=== PATIENT | female | born 1955 | race Caucasian/White ===

== ENCOUNTER 2020-03-06 14:11 | Inpatient (IN) | payer OTHER, MEDICAID ==
[~2020-03-06] VITALS: Ht 160 cm; Wt 54.4 kg
[2020-03-06 15:45] LABS: EOSINOPHILS % 2.5 % (0.0-5.0); HEMATOCRIT. 38.1 % (36.0-48.0); HEMOGLOBIN. 12.8 g/dL (12.0-16.0); LYMPHOCYTES % 33.6 % (20.0-50.0); MEAN CORPUSCULAR HEMOGLOBIN 27.3 pg (28.0-32.0); MEAN CORPUSCULAR VOLUME 81.3 fL (81.0-99.0); MEAN PLATELET VOLUME 9.4 fl (7.4-10.4); MONOCYTES % 6.8 % (2.0-8.0); NEUTROPHILS % 56.1 % (40.0-76.0); PLATELET 216 x1000/uL (130-400); RED BLOOD CELL COUNT 4.69 mill/uL (4.2-5.4); RED CELL DISTRIBUTION WIDTH 15.3 % (11.6-14.6)
[2020-03-06] MEDS ORDERED: NITROGLYCERIN 0.4MG TABLET SL SL PRN (15:45)
[2020-03-06] MEDS ORDERED: ASPIRIN 81MG TABLET PO ONE (15:45)
[2020-03-06 15:55] LABS: CHLORIDE 101 mEq/L (98-107)
[2020-03-06] MEDS ORDERED: ACETAMINOPHEN 650MG SUPP PR PRN ×2 (21:45)
[2020-03-06] MEDS ORDERED: GUAIFENESIN 200MG/10ML SUGAR FREE UDC PO PRN (21:45)
[2020-03-06] MEDS ORDERED: DOCUSATE SODIUM 100MG CAPSULE PO PRN (21:45)
[2020-03-06] MEDS ORDERED: ACETAMINOPHEN 650MG/20.3ML UDC GT PRN ×2 (21:45)
[2020-03-06] MEDS ORDERED: ONDANSETRON HCL 4MG/2ML INJ IV PRN (21:45)
[2020-03-06] MEDS ORDERED: ACETAMINOPHEN 325MG TABLET PO PRN ×2 (21:45)
[2020-03-06] MEDS ORDERED: DEXTROSE 50% WATER 50ML SYRINGE IV PRN (21:45)
[2020-03-06] MEDS ORDERED: MAGNESIUM/ALUMINUM HYDROXIDE/SIMETHICONE 30ML UDC PO PRN (21:45)
[2020-03-06] MEDS ORDERED: NA PHOS,M-B/NA PHOS,DI-BA ENEMA 118ML PR PRN (21:45)
[2020-03-07] VITALS (7 sets, daily range): BP systolic 100–175; BP diastolic 43–63
[2020-03-07] MEDS ORDERED: MECL-159 MT (00:11)
[2020-03-07] MEDS ORDERED: ATOR40TA70 MT (00:12)
[2020-03-07] MEDS ORDERED: LISI-604 MT (00:13)
[2020-03-07] MEDS ORDERED: SITA100T11 MT (00:14)
[2020-03-07] MEDS ORDERED: GLIM2TAB30 MT (00:15)
[2020-03-07 00:27] LABS: CREATINE KINASE 34 IU/L (26-192)
[2020-03-07 00:29] LABS: CREATINE KINASE MB FRACTION < 1.0 ng/mL (0.5-3.6)
[2020-03-07] MEDS: CLONIDINE 0.1MG TABLET PO PRN ×2 (00:29→18:56)
[2020-03-07 06:20] LABS: BASOPHILS % 0.5 % (0.0-2.0); EOSINOPHILS % 2.4 % (0.0-5.0); HEMATOCRIT. 32.7 % (36.0-48.0); HEMOGLOBIN. 10.9 g/dL (12.0-16.0); LYMPHOCYTES % 33.7 % (20.0-50.0); MEAN PLATELET VOLUME 8.7 fl (7.4-10.4); MONOCYTES % 8.6 % (2.0-8.0); NEUTROPHILS % 54.8 % (40.0-76.0); PLATELET 204 x1000/uL (130-400); RED BLOOD CELL COUNT 4.03 mill/uL (4.2-5.4); RED CELL DISTRIBUTION WIDTH 15.6 % (11.6-14.6)
[2020-03-07 06:30] LABS: CHLORIDE 105 mEq/L (98-107)
[2020-03-07 06:39] LABS: HDL CHOLESTEROL 43 mg/dL (40-59)
[2020-03-07] MEDS: BLOOD SUGAR DIAGNOSTIC STRIP TEST SCH ×3 (06:39→21:41)
[2020-03-07 06:40] LABS: LDL CHOLESTEROL 83 mg/dL (5-100)
[2020-03-07 06:41] LABS: CREATINE KINASE 30 IU/L (26-192)
[2020-03-07 06:45] LABS: CREATINE KINASE MB FRACTION < 1.0 ng/mL (0.5-3.6)
[2020-03-07] MEDS: CLOPIDOGREL 75MG TABLET PO SCH (09:00)
[2020-03-07] MEDS: ENOXAPARIN 40MG/0.4ML SYR SUBCUT SCH (09:00)
[2020-03-07] MEDS: ASPIRIN 81MG TABLET PO SCH (09:00)
[2020-03-07] MEDS: INSULIN LISPRO 100 UNITS/ML SUBCUT SCH ×3 (09:32→21:41)
[2020-03-07 09:59] LABS: T4 FREE 1.16 ng/dL (0.76-1.46)
[2020-03-07] MEDS ORDERED: HEPARIN SODIUM 1,000 UNIT/1ML VIAL IV ONE (13:15)
[2020-03-07] MEDS ORDERED: FENTANYL CITRATE/PF 50MCG/ML 2ML VIAL ONE (13:35)
[2020-03-07] MEDS ORDERED: LIDOCAINE HCL 1% 20ML VIAL (Pyxis) INJ ONE (13:35)
[2020-03-07] MEDS ORDERED: MIDAZOLAM HCL 2 MG/2 ML VIAL ONE (13:35)
[2020-03-07] MEDS ORDERED: IODIXANOL 320MG/ML 100 ML BOTTLE IV ONE (13:35)
[2020-03-07] MEDS ORDERED: ATROPINE SULFATE 1MG/10ML SYR IV PRN (15:30)
[2020-03-07] MEDS ORDERED: ACETAMINOPHEN 325MG TABLET PO PRN (15:30)
[2020-03-07] MEDS ORDERED: ASPI-986 MT (18:27)
[2020-03-08] VITALS: BP 94/37
[2020-03-08 00:01] LABS: CREATINE KINASE 31 IU/L (26-192)
[2020-03-08 00:02] LABS: CREATINE KINASE MB FRACTION < 1.0 ng/mL (0.5-3.6)
[2020-03-08 04:00] VITALS: BP 99/31
[2020-03-08 05:57] LABS: CREATINE KINASE 31 IU/L (26-192)
[2020-03-08 05:58] LABS: CREATINE KINASE MB FRACTION < 1.0 ng/mL (0.5-3.6)
[2020-03-08] MEDS: BLOOD SUGAR DIAGNOSTIC STRIP TEST SCH (06:45)
[2020-03-08 07:35] VITALS: BP 135/59
[2020-03-08 08:00] VITALS: BP 139/59
[2020-03-08] MEDS: CLOPIDOGREL 75MG TABLET PO SCH (08:10)
[2020-03-08] MEDS: ASPIRIN 81MG TABLET PO SCH (08:10)
[2020-03-08] MEDS: ENOXAPARIN 40MG/0.4ML SYR SUBCUT SCH (08:11)
[2020-03-08] MEDS: INSULIN LISPRO 100 UNITS/ML SUBCUT SCH (08:13)
[2020-03-08] MEDS ORDERED: ATORVASTATIN CALCIUM 40MG TABLET PO SCH (21:00)
== END 2020-03-08 09:00 | disposition home or self-care (01) | DRG 287 ==
LOC: ER 14:18 → EDBEDREQ 17:56 → EDBEDREQTM 17:56 → 6WST 17:57 → EDBEDREQ 18:14 → ENRESERV 20:25
PROVIDERS: ADMIT Family Medicine; ATTEND Family Medicine
PROC: 4A023N7 Measurement of Cardiac Sampling and Pressure, Left Heart, Percutaneous Approach (ICD-10-PCS; principal; 2020-03-07)
PROC: B2111ZZ Fluoroscopy of Multiple Coronary Arteries using Low Osmolar Contrast (ICD-10-PCS; 2020-03-07)
PROC: B2151ZZ Fluoroscopy of Left Heart using Low Osmolar Contrast (ICD-10-PCS; 2020-03-07)
PROC: 4A033BC Measurement of Arterial Pressure, Coronary, Percutaneous Approach (ICD-10-PCS; 2020-03-07)
DX: I25.110 Atherosclerotic heart disease of native coronary artery with unstable angina pectoris (principal); E87.1 Hypo-osmolality and hyponatremia; R07.9 Chest pain, unspecified; I10 Essential (primary) hypertension; E78.5 Hyperlipidemia, unspecified; Z79.899 Other long term (current) drug therapy; Z79.84 Long term (current) use of oral hypoglycemic drugs; E11.65 Type 2 diabetes mellitus with hyperglycemia
CPT/HCPCS: 36415; 71045; 80053; 80061; 82550; 82553; 82962; 83036; 83880; 84439; 84443; 84484; 85025; 85379; 93005; 93306; 93458; 93571; 93970; 99285; C1769; C1887; C1893; J1644; J1650; J1815; J2250; J2405; J3010; J3490; Q9967

== ENCOUNTER 2021-04-23 12:44 | Inpatient (IN) | payer OTHER, MEDICAID ==
[~2021-04-23] VITALS: Ht 160 cm; Wt 58.2 kg
[~2021-04-23 12:44] MED LIST: ASPI-986 MT; ATOR40TA70 MT; GLIM2TAB30 MT; LISI20TA31 MT; MECL-159 MT; SITA100T11 MT
[2021-04-23] MEDS ORDERED: ASPIRIN 325MG EC TABLET PO ONE (13:00)
[2021-04-23 13:34] LABS: BASOPHILS % 1.3 % (0.0-2.0); EOSINOPHILS % 1.3 % (0.0-5.0); HEMATOCRIT. 33.5 % (36.0-48.0); HEMOGLOBIN. 11.4 g/dL (12.0-16.0); LYMPHOCYTES % 24.1 % (20.0-50.0); MEAN CORPUSCULAR HEMOGLOBIN 26.5 pg (28.0-32.0); MEAN PLATELET VOLUME 8.4 fl (7.4-10.4); MONOCYTES % 5.9 % (2.0-8.0); NEUTROPHILS % 67.4 % (40.0-76.0); PLATELET 232 x1000/uL (130-400); RED BLOOD CELL COUNT 4.29 mill/uL (4.2-5.4); RED CELL DISTRIBUTION WIDTH 16.8 % (11.6-14.6)
[2021-04-23 13:39] LABS: CHLORIDE 105 mEq/L (98-107)
[2021-04-23] MEDS ORDERED: MORPHINE SULFATE 4 MG/ML CPJ (NOT FOR IM USE) IV ONE (16:45)
[2021-04-23] MEDS ORDERED: ONDANSETRON HCL 4MG/2ML INJ IV ONE (17:15)
[2021-04-23] MEDS ORDERED: MORPHINE SULFATE 2 MG/ML CPJ (NOT FOR IM USE) IV PRN (19:00)
[2021-04-23] MEDS ORDERED: DIPHENHYDRAMINE 50MG/ML VIAL IV PRN (19:00)
[2021-04-23] MEDS ORDERED: IPRATROPIUM/ALBUTEROL 0.5-3(2.5)MG/3ML NEB HHN PRN (19:00)
[2021-04-23] MEDS ORDERED: CLONIDINE 0.1MG TABLET PO PRN (19:00)
[2021-04-23] MEDS ORDERED: ONDANSETRON HCL 4MG/2ML INJ IV PRN (19:00)
[2021-04-23] MEDS ORDERED: ACETAMINOPHEN 325MG TABLET PO PRN (19:00)
[2021-04-23] MEDS ORDERED: IOHEXOL-350 100 ML BOTTLE ONE (19:03)
[2021-04-23 22:30] VITALS: BP 141/55
[2021-04-23 22:31] VITALS: BP 141/55
[2021-04-24] MEDS: ENOXAPARIN 40MG/0.4ML SYR SUBCUT SCH ×2 (02:32→20:44)
[2021-04-24] MEDS ORDERED: METF-416 MT (02:55)
[2021-04-24 04:00] VITALS: BP 111/53
[2021-04-24 06:18] LABS: BASOPHILS % 0.5 % (0.0-2.0); HEMATOCRIT. 32.6 % (36.0-48.0); HEMOGLOBIN. 10.7 g/dL (12.0-16.0); LYMPHOCYTES % 28.7 % (20.0-50.0); MEAN CORPUSCULAR HEMOGLOBIN 26.1 pg (28.0-32.0); MEAN CORPUSCULAR VOLUME 79.4 fL (81.0-99.0); MONOCYTES % 9.1 % (2.0-8.0); NEUTROPHILS % 59.7 % (40.0-76.0); PLATELET 220 x1000/uL (130-400); RED CELL DISTRIBUTION WIDTH 16.8 % (11.6-14.6)
[2021-04-24 06:27] LABS: CHLORIDE 102 mEq/L (98-107)
[2021-04-24 06:39] LABS: LDL CHOLESTEROL 72 mg/dL (5-100)
[2021-04-24 06:41] LABS: HDL CHOLESTEROL 42 mg/dL (40-59)
[2021-04-24 08:00] VITALS: BP 143/57
[2021-04-24] MEDS ORDERED: *PATIENT'S OWN MEDICATION STORAGE XX SCH (08:30)
[2021-04-24] MEDS ORDERED: METOPROLOL TARTRATE 25MG TABLET PO SCH (10:15)
[2021-04-24] MEDS ORDERED: NALOXONE HCL 0.4MG/ML VIAL IV PRN (10:15)
[2021-04-24] MEDS: ASPIRIN 81MG TABLET PO SCH (10:36)
[2021-04-24 12:00] VITALS: BP 118/58
[2021-04-24 16:00] VITALS: BP 131/52
[2021-04-24 20:00] VITALS: BP 130/49
[2021-04-24] MEDS: ATORVASTATIN CALCIUM 40MG TABLET PO SCH (20:44)
[2021-04-25] VITALS: BP_SYST 104; BP_DIAS 46; BP_DIAS 48
[2021-04-25 04:00] VITALS: BP 119/59
[2021-04-25] MEDS: GLIMEPIRIDE 2MG TABLET PO SCH (06:08)
[2021-04-25] MEDS: METFORMIN HCL 500MG TABLET PO SCH ×2 (06:10→17:13)
[2021-04-25] MEDS: ASPIRIN 81MG TABLET PO SCH (09:01)
[2021-04-25 12:00] VITALS: BP 127/52
[2021-04-25] MEDS: LISINOPRIL 20MG TABLET PO SCH (12:13)
[2021-04-25 16:00] VITALS: BP 112/57
[2021-04-25] MEDS: DOCUSATE SODIUM 100MG CAPSULE PO SCH (17:14)
[2021-04-25 20:00] VITALS: BP 106/50
[2021-04-25] MEDS: ENOXAPARIN 40MG/0.4ML SYR SUBCUT SCH (21:16)
[2021-04-25] MEDS: ATORVASTATIN CALCIUM 40MG TABLET PO SCH (21:16)
[2021-04-26] VITALS: BP 104/60
[2021-04-26 04:00] VITALS: BP 110/65
[2021-04-26] MEDS: METFORMIN HCL 500MG TABLET PO SCH ×3 (06:36→18:18)
[2021-04-26] MEDS: GLIMEPIRIDE 2MG TABLET PO SCH (06:36)
[2021-04-26 07:38] LABS: BASOPHILS % 0.7 % (0.0-2.0); EOSINOPHILS % 2.5 % (0.0-5.0); HEMATOCRIT. 38.3 % (36.0-48.0); HEMOGLOBIN. 12.6 g/dL (12.0-16.0); LYMPHOCYTES % 30.8 % (20.0-50.0); MEAN CORPUSCULAR HEMOGLOBIN 26.4 pg (28.0-32.0); MEAN CORPUSCULAR VOLUME 80.1 fL (81.0-99.0); MEAN PLATELET VOLUME 8.7 fl (7.4-10.4); PLATELET 232 x1000/uL (130-400); RED BLOOD CELL COUNT 4.78 mill/uL (4.2-5.4); RED CELL DISTRIBUTION WIDTH 16.9 % (11.6-14.6)
[2021-04-26 08:00] VITALS: BP 163/49
[2021-04-26] MEDS: DOCUSATE SODIUM 100MG CAPSULE PO SCH ×2 (09:00→17:00)
[2021-04-26] MEDS: ASPIRIN 81MG TABLET PO SCH (09:00)
[2021-04-26] MEDS: LISINOPRIL 20MG TABLET PO SCH (09:07)
[2021-04-26] MEDS ORDERED: HEPARIN SODIUM 1,000 UNIT/1ML VIAL IV ONE (09:12)
[2021-04-26 12:00] VITALS: BP 13/56
[2021-04-26] MEDS ORDERED: MIDAZOLAM HCL 2 MG/2 ML VIAL ONE (13:26)
[2021-04-26] MEDS ORDERED: VERAPAMIL HCL 2.5 MG/1 ML 2ML VIAL IV ONE (13:26)
[2021-04-26] MEDS ORDERED: FENTANYL CITRATE/PF 50MCG/ML 2ML VIAL ONE (13:26)
[2021-04-26] MEDS ORDERED: LIDOCAINE HCL 1% 20ML VIAL (Pyxis) INJ ONE (13:27)
[2021-04-26] MEDS ORDERED: IODIXANOL 320MG/ML 100 ML BOTTLE IV ONE (13:27)
[2021-04-26] MEDS ORDERED: ATROPINE SULFATE 1MG/10ML SYR IV PRN (15:00)
[2021-04-26] MEDS: SODIUM CHLORIDE 0.45% 300 ML IV SCH ×5 (15:55→23:00)
[2021-04-26] MEDS ORDERED: ISOS30TA91 PO ×2 (18:04)
[2021-04-26] MEDS: ISOSORBIDE MONONITRATE 30MG TABLET SR 24HR PO SCH (18:23)
[2021-04-26 20:00] VITALS: BP 116/46
[2021-04-26] MEDS: ENOXAPARIN 40MG/0.4ML SYR SUBCUT SCH (20:17)
[2021-04-26] MEDS: ATORVASTATIN CALCIUM 40MG TABLET PO SCH (20:17)
[2021-04-27] VITALS: BP 108/50
[2021-04-27] MEDS: SODIUM CHLORIDE 0.45% 300 ML IV SCH ×8 (01:00→14:41)
[2021-04-27 04:00] VITALS: BP 100/50
[2021-04-27] MEDS: METFORMIN HCL 500MG TABLET PO SCH (06:21)
[2021-04-27] MEDS: GLIMEPIRIDE 2MG TABLET PO SCH (06:21)
[2021-04-27 08:00] VITALS: BP 112/43
[2021-04-27 08:24] LABS: BASOPHILS % 0.5 % (0.0-2.0); HEMATOCRIT. 33.1 % (36.0-48.0); HEMOGLOBIN. 11.1 g/dL (12.0-16.0); LYMPHOCYTES % 23.8 % (20.0-50.0); MEAN CORPUSCULAR HEMOGLOBIN 26.4 pg (28.0-32.0); MEAN PLATELET VOLUME 8.7 fl (7.4-10.4); MONOCYTES % 7.5 % (2.0-8.0); NEUTROPHILS % 66.2 % (40.0-76.0); PLATELET 245 x1000/uL (130-400); RED BLOOD CELL COUNT 4.19 mill/uL (4.2-5.4)
[2021-04-27 08:35] LABS: CHLORIDE 101 mEq/L (98-107)
[2021-04-27] MEDS: ASPIRIN 81MG TABLET PO SCH (09:39)
[2021-04-27] MEDS: ISOSORBIDE MONONITRATE 30MG TABLET SR 24HR PO SCH (09:40)
[2021-04-27] MEDS: DOCUSATE SODIUM 100MG CAPSULE PO SCH (09:40)
[2021-04-27] MEDS: LISINOPRIL 20MG TABLET PO SCH (09:40)
[2021-04-27 12:00] VITALS: BP 102/51
[2021-04-27] MEDS ORDERED: MIDAZOLAM HCL 2 MG/2 ML VIAL ONE (14:16)
[2021-04-27] MEDS ORDERED: FENTANYL CITRATE/PF 50MCG/ML 2ML VIAL ONE (14:16)
[2021-04-27 14:22] VITALS: BP 102/51
[2021-04-27] MEDS ORDERED: ISOS30TA91 MT (15:02)
== END 2021-04-27 15:50 | disposition home or self-care (01) | DRG 287 ==
LOC: ER 12:44 → ENRESERV 20:36 → 7EST 22:07
PROVIDERS: ADMIT Internal Medicine; ATTEND Internal Medicine
PROC: 4A023N7 Measurement of Cardiac Sampling and Pressure, Left Heart, Percutaneous Approach (ICD-10-PCS; principal; 2021-04-26)
PROC: B211YZZ Fluoroscopy of Multiple Coronary Arteries using Other Contrast (ICD-10-PCS; 2021-04-26)
PROC: 4B02XSZ Measurement of Cardiac Pacemaker, External Approach (ICD-10-PCS; 2021-04-26)
DX: I25.119 Atherosclerotic heart disease of native coronary artery with unspecified angina pectoris (principal); E11.9 Type 2 diabetes mellitus without complications; I10 Essential (primary) hypertension; I16.0 Hypertensive urgency; Z20.822 Contact with and (suspected) exposure to COVID-19; G90.8 Other disorders of autonomic nervous system; R00.1 Bradycardia, unspecified; Z95.0 Presence of cardiac pacemaker; Z79.899 Other long term (current) drug therapy; Z79.82 Long term (current) use of aspirin; Z79.84 Long term (current) use of oral hypoglycemic drugs
CPT/HCPCS: 36415; 71045; 71275; 80048; 80053; 80061; 82962; 83880; 84443; 84484; 85025; 85379; 87426; 93005; 93306; 93458; 93970; 99285; C1760; C1769; C1887; C1893; J1644; J1650; J2250; J2270; J2405; J3010; J3490; Q9967